=== PATIENT | female | born 1955 | race African-American/Black ===

== ENCOUNTER 2018-09-16 12:08 | Emergency (ER) | payer MEDICAID ==
[~2018-09-16] VITALS: Ht 165.1 cm; Wt 68.0 kg
[2018-09-16] MEDS ORDERED: IBUPROFEN 800MG TABLET PO ONE (15:30)
[2018-09-16 16:40] VITALS: BP 130/67
== END 2018-09-16 16:43 | disposition home or self-care (01) ==
LOC: ER 12:08
DX: M25.562 Pain in left knee (principal); F20.9 Schizophrenia, unspecified; Z98.890 Other specified postprocedural states
CPT/HCPCS: 73562; 99283

== ENCOUNTER 2025-04-10 14:50 | Emergency (ER) | payer MEDICAID ==
[~2025-04-10] VITALS: Ht 172.7 cm; Wt 80.0 kg
[2025-04-10 14:55] VITALS: O2SAT 99
[2025-04-10 15:03] VITALS: BP 104/71; PULSE 98; RESP 18; TEMP 36.6; O2SAT 99
[2025-04-10] MEDS ORDERED: FUROSEMIDE 40MG TABLET PO ONE (17:45)
[2025-04-10] MEDS ORDERED: NAPROXEN 375MG TABLET PO ONE (17:45)
[2025-04-10] MEDS ORDERED: NAPR-1176 MT (17:48)
[2025-04-10] MEDS ORDERED: DICL100G46 TP (17:48)
[2025-04-10] MEDS ORDERED: FURO-151 MT (17:48)
== END 2025-04-10 18:14 | disposition home or self-care (01) ==
LOC: ER 15:01
DX: M25.551 Pain in right hip (principal); M25.561 Pain in right knee; F20.9 Schizophrenia, unspecified; M16.11 Unilateral primary osteoarthritis, right hip; Z79.1 Long term (current) use of non-steroidal anti-inflammatories (NSAID); Z79.899 Other long term (current) drug therapy; Z90.49 Acquired absence of other specified parts of digestive tract
CPT/HCPCS: 73502; 99283